=== PATIENT | male | born 1950 | race American Indian/Alaskan Native ===

== ENCOUNTER 2017-07-11 16:36 | Emergency (ER) | payer MEDICARE, MEDICAID ==
[~2017-07-11] VITALS: Ht 160 cm; Wt 78.8 kg
[~2017-07-11 16:36] MED LIST: ACID1TAB7 PO; AMLO2.5T2 PO; AMOX1TAB12 PO; ATEN25TA PO; ATEN50TA41 PO; FELO5TAB PO; LISI-170 PO; LISI2.5T PO
[2017-07-11 16:38] VITALS: BP 152/92
== END 2017-07-11 18:04 | disposition home or self-care (01) ==
LOC: ED 17:35
DX: M25.562 Pain in left knee (principal); I10 Essential (primary) hypertension
CPT/HCPCS: 29505; 99284

== ENCOUNTER 2020-03-06 16:46 | Emergency (ER) | payer MEDICAID, MEDICARE ==
[~2020-03-06] VITALS: Ht 160 cm; Wt 83.0 kg
[~2020-03-06 16:46] MED LIST changes: -FELO5TAB PO; +FELO5TAB4 PO
[2020-03-06 16:51] VITALS: BP 123/85
--- NOTE | 2020-03-06 18:16 | NUR ---
Pt to room from [facility], ambulatory with steady gait.
--- NOTE | 2020-03-06 18:54 | NUR ---
REPORT OF PT FROM MAGGIE LEONARD AT THIS TIME. ALL QUESTIONS ANSWERED AND ASSUMING CARE OF THIS PT.
--- NOTE | 2020-03-06 19:23 | NUR ---
PT EDUCATED ON D/C SUMMARY AND OTC MEDICATIONS FOR PAIN. PT VERBALIZES UNDERSTANDING. PT AMBULATES TO REGISTRATION DESK WITH STEADY GAIT FOR D/C HOME. PT DENIES ANY OTHER NEEDS PERTAINING TO THIS VISIT.
== END 2020-03-06 19:29 | disposition home or self-care (01) ==
LOC: ED 19:15
DX: S50.11XA Contusion of right forearm, initial encounter (principal); I10 Essential (primary) hypertension; E07.9 Disorder of thyroid, unspecified; X58.XXXA Exposure to other specified factors, initial encounter; Y93.89 Activity, other specified; Y92.098 Other place in other non-institutional residence as the place of occurrence of the external cause; Y99.8 Other external cause status
CPT/HCPCS: 99283

== ENCOUNTER 2020-04-16 19:58 | Emergency (ER) | payer MEDICARE ==
[~2020-04-16] VITALS: Ht 160 cm; Wt 83.0 kg
--- NOTE | 2020-04-16 20:28 | NUR ---
PT CHANGING AT THIS TIME
--- NOTE | 2020-04-16 21:02 | NUR ---
REPORT TO [facility] TRANSFERED AT THIS TIME
[2020-04-16 21:21] LABS: BASOPHILS # (AUTO) 0.02 x10^3/uL (0-0.1); BASOPHILS % (AUTO) 0 % (0-1); EOSINOPHILS % (AUTO) 7 % (1-7); LYMPHOCYTES # (AUTO) 1.76 x10^3/uL (1-3.4); LYMPHOCYTES % (AUTO) 24 % (22-44); MD NO; MEAN CORPUSCULAR HEMOGLOBIN 32.6 pg (27.5-34.5); MEAN CORPUSCULAR HGB CONC 33.3 g/dL (33.2-36.2); MEAN PLATELET VOLUME 7.9 fL (7.4-10.4); MONOCYTES % (AUTO) 9 % (2-9); NEUTROPHILS # (AUTO) 4.52 x10^3/uL (1.8-6.8); NEUTROPHILS % (AUTO) 60 % (42-75); PLATELET COUNT 219 x10^3/uL (130-400); RED BLOOD COUNT 4.57 x10^6/uL (4.38-5.82); RED CELL DISTRIBUTION WIDTH 13.6 % (9.4-14.8)
[2020-04-16 21:31] LABS: ALANINE AMINOTRANSFERASE 32 U/L (12-78); ALBUMIN 3.4 g/dL (3.4-5.0); ANION GAP 8 mmol/L (5-15); CALCIUM 8.3 mg/dL (8.5-10.1); CHLORIDE 113 mmol/L (98-107); CREATININE 1.04 mg/dL (0.7-1.3)
[2020-04-16 21:33] LABS: ALKALINE PHOSPHATASE 79 U/L (45-117); BILIRUBIN,TOTAL 0.8 mg/dL (0.2-1.0)
--- NOTE | 2020-04-16 22:02 | NUR ---
ua sent. aware of pending ct. denies any needs. will ctm. vss.
[2020-04-16 22:03] VITALS: BP 122/80
[2020-04-16 22:11] LABS: MICROSCOPIC NOT IND
--- NOTE | 2020-04-16 22:17 | NUR ---
STARTED 20G IN RIGHT AC FOR CT. SENT PT BACK TO ER WITH IV INTACT.
[2020-04-16] MEDS ORDERED: OMNIPAQUE 350 MG/ML, 100ML BOTTLE ONE (22:48)
[2020-04-16] MEDS ORDERED: ACETAMINOPHEN 325 MG TABLET ONE (23:27)
[2020-04-16] MEDS ORDERED: metroNIDAZOLE 500 MG TABLET ONE (23:27)
[2020-04-16] MEDS ORDERED: CIPROFLOXACIN 500 MG TABLET ONE (23:28)
[2020-04-16] MEDS ORDERED: ACETAMINOPHEN 325 MG TABLET PO ONE (23:30)
[2020-04-16] MEDS ORDERED: CIPROFLOXACIN 500 MG TABLET PO ONE (23:30)
[2020-04-16] MEDS ORDERED: metroNIDAZOLE 500 MG TABLET PO ONE (23:30)
== END 2020-04-17 00:16 | disposition home or self-care (01) ==
LOC: ED 20:44
DX: K57.92 Diverticulitis of intestine, part unspecified, without perforation or abscess without bleeding (principal); R10.30 Lower abdominal pain, unspecified; I10 Essential (primary) hypertension; Z86.39 Personal history of other endocrine, nutritional and metabolic disease
CPT/HCPCS: 36415; 74177; 80053; 81003; 83690; 85025; 99285; Q9967

== ENCOUNTER 2020-05-15 14:38 | Emergency (ER) | payer MEDICARE ==
[~2020-05-15] VITALS: Ht 162.6 cm; Wt 82.6 kg
[2020-05-15] MEDS ORDERED: LIDOCAINE-MPF 1%, 5ML INFIL ONE (16:00)
[2020-05-15 17:23] VITALS: BP 137/88
--- NOTE | 2020-05-15 18:31 | NUR ---
PT AMBULATES FROM LOBBY TO ROOM WITH STEADY GAIT.
[2020-05-15] MEDS ORDERED: DIPH,PERTUSS(ACELL),TET VAC/PF 0.5 ML IM-VACC ONE ×2 (19:30→20:29)
--- NOTE | 2020-05-15 21:16 | NUR ---
PT D/C WITH D/C SUMMARY AND SCRIPTS. ALL QUESTIONS ANSWERED. PT AMBULATES TO REGISTRATION DESK WITH STEADY GAIT FOR D/C HOME AND DENIES ANY OTHER NEEDS PERTAINING TO THIS VISIT.
== END 2020-05-15 21:20 | disposition home or self-care (01) ==
LOC: ED 18:33
DX: L02.31 Cutaneous abscess of buttock (principal); L03.317 Cellulitis of buttock; I10 Essential (primary) hypertension
CPT/HCPCS: 10060; 90471; 90715

== ENCOUNTER 2020-05-17 19:19 | Emergency (ER) | payer MEDICARE ==
[~2020-05-17] VITALS: Ht 160 cm; Wt 84.4 kg
--- NOTE | 2020-05-17 20:13 | NUR ---
CC OF ABSCESS ON L BUTT CHEEK RATING SHARP PAIN 6/10. PT HERE ON MONDAY FOR SAME THING, WOUND WAS PACKED THAT VISIT. TODAY PTS WAS CHANGING DRESSING AND PART OF THE PACKING STARTED COMING OUT. PT PRESENTS WITH A BANDAGE ON WOUND, BLOODY DRAINAGE NOTED, AND A MODERATE AMOUNT OF THE PACKING OUTSIDE OF THE WOUND BUT HELD IN PLACE BY THE BANDAGE. PT ALSO STATES HE STARTED ANTIBIOTICS YESTERDAY.
[2020-05-17 20:46] VITALS: BP 118/76
== END 2020-05-17 20:52 | disposition home or self-care (01) ==
LOC: ED 20:15
DX: Z48.01 Encounter for change or removal of surgical wound dressing (principal)
CPT/HCPCS: 99281